=== PATIENT | female | born 1985 | race Caucasian/White ===

== ENCOUNTER 2025-08-24 11:27 | Emergency (ER) | payer SELFPAY ==
[2025-08-24 11:30] VITALS: BP 176/108; PULSE 74; RESP 18; TEMP 36.6; O2SAT 100; BMI 25.4
[2025-08-24 11:38] VITALS: BP 176/108; PULSE 88; O2SAT 100
--- NOTE | 2025-08-24 12:25 | HMH.EDGENADL ---
Discharge Plan Referrals Follow up/Referrals: Provider,Referral, [Primary Care Provider, Medical] - See instructions Clinical Impressions Clinical Impression: Esophageal cancer, Acute upper GI bleed Stand Alone Forms Stand Alone Forms: Transfer Record - ED Instructions Patient Instructions: DI for Acute Abdominal Pain Print Language Print Language: Swedish Discharge ED Provider: Tari Shelton General Adult HPI General Chief complaint: Abdominal Pain Stated complaint: Abd Pain, vomiting blood Time Seen by Provider: 08/24/25 12:03 Mode of Arrival: Ambulatory Source of Information: Patient Description of Symptoms (Recalled from ER Triage Doc. by RN): PATIENT PRESENTS TO ED FOR MIDLINE EPIGASTRIC PAIN WITH 3 EPISODES OF VOMITING BLOOD AND CLOTS. VOMITING BEGAN YESTERDAY, ABDOMINAL PAIN BEGAN THIS MORNING. PT IS CURRENTLY BEING TREATED FOR HER SECOND DX OF ESOPHAGEAL CANCER WITH CHEMO AND RADIATION. PT IS IN TOWN FROM THE [facility] AND RECEIVES ALL OF HER CARE BACK HOME. REPORTS SHE RECEIVED 2 UNITS OF PLASMA AND 4 UNITS OF BLOOD BEFORE LEAVING FOR HER TRIP HERE. History of Present Illness HPI narrative: Patient is a 40-year-old female who presents today with symptoms concerning for an upper GI bleed. She has a history of these in the past. Has known esophageal cancer recently had to have a transfusion just a few days ago in [facility]. She was diagnosed with esophageal cancer and 2011. 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 She received chemotherapy at that time ultimately getting a resection and was cancer free in 2013. She had been getting surveillance testing done since that time and 1 year ago was noted to have recurrence of disease. She states that it is a tumor in her distal esophagus with local extension into the stomach. She has a severe anaphylactic allergy to contrast. She flew in on Monday for a friend's wedding was not told that she could not travel. Her hemoglobin was less than 7 the same day she also had an infusion of chemo that they was told to just take her medications and that she was okay. However she has developed large amounts of hematemesis she states over the last several days as well as black tarry stools. She took her Protonix octreotide Dilaudid Zofran and GI cocktail without any improvement at home. She was told to come to her nearest emergency department. All of her cancer care has been in the [facility] [place]. She is never been taken care of in the [place]. She complains of severe epigastric abdominal discomfort. Related Data Allergies Allergy/AdvReac Type Severity Reaction Status Date / Time fentanyl Allergy Anaphylaxis Verified 08/24/25 12:39 iodine Allergy Anaphylaxis Verified 08/24/25 12:38 [facility] Disclaimer: The information contained in this section may have been updated after the patient was seen, as this information can be updated by other users. Social History Smoking Status: Never smoker alcohol intake: never current occupational status: other Travel in the last 8 weeks?: None ROS Obtained: Yes All systems reviewed & no additional complaints except as documented Physical Exam General General appearance: in distress (Appears in pain) Respiratory Respiratory exam: Present normal lung sounds bilaterally Cardiovascular Cardiovascular exam: Present regular rate Abdominal Exam Abdominal exam: Present tenderness (Epigastric tenderness palpation no rebound or guarding) Neurological Exam Neurological exam: Present alert and oriented X3 Medical Decision Making Medical Records Screening: Per USPSTF and CDC recommendations, given the prevalence of disease in our region, it is our hospital?s policy to screen for HIV and viral Hepatitis for all patients aged 18 and over and those with ongoing risk factors. Herbert Inquiry Pt receiving controlled substance: No Vital Signs: 08/24/25 11:30 08/24/25 11:30 08/24/25 11:38 Temperature 97.9 F 97.9 F Temperature Source Oral Pulse Rate 74 88 Pulse Rate [Right] 74 Respiratory Rate 18 18 Blood Pressure 176/108 H 176/108 H Blood Pressure [Right Arm] 176/108 H Blood Pressure Mean Blood Pressure Mean [Right Arm] 130 02 Sat by Pulse Oximetry 100 100 100 Oxygen Delivery Method Room Air 08/24/25 12:40 Temperature Temperature Source Pulse Rate Pulse Rate [Right] Respiratory Rate Blood Pressure 182/107 H Blood Pressure [Right Arm] Blood Pressure Mean 135 Blood Pressure Mean [Right Arm] 02 Sat by Pulse Oximetry 95 Oxygen Delivery Method Room Air Lab Data Lab results reviewed: Yes I reviewed the patient's lab results. Lab Results 08/24/25 12:30: WBC 9.5, RBC 4.60, Hgb 10.5 L, Hct 33.8 L, MCV 73.5 L, MCH 22.8 L, MCHC 31.1 L, RDW 20.6 H, Plt Count 425 H, MPV 9.6, Neut % (Auto) 81.2 H, Lymph % (Auto) 11.3, Bracken % (Auto) 6.1, Eos % (Auto) 0.9, Baso % (Auto) 0.2, Neut # (Auto) 7.7, Lymph # (Auto) 1.1, Bracken # (Auto) 0.6, Eos # (Auto) 0.1, Baso # (Auto) 0.0 08/24/25 12:30 Orders (Tests/Meds): ED MEDICATIONS Generic Name Dose Route Start Last Admin Trade Name Freq PRN Reason Stop Dose Admin Lactated Ringer's 1,000 mls @ 999 mls/hr 08/24/25 12:15 08/24/25 12:42 Lactated Ringer's 1000 Ml Bag IV 08/24/25 13:15 999 mls/hr .Q1H1M SHERLY Administration Pantoprazole Sodium 80 mg/ 100 mls @ 10 mls/hr 08/24/25 12:30 08/24/25 12:42 Sodium Chloride IV 08/27/25 12:29 10 mls/hr .Q10H SHERLY Administration Octreotide Acetate 500 mcg/ 255 mls @ 25.5 mls/hr 08/24/25 12:45 Sodium Chloride IV 09/23/25 12:44 .Q10H SHERLY 50 MCG/HR Discontinued Medications Generic Name Dose Route Start Last Admin Trade Name Freq PRN Reason Stop Dose Admin Hydromorphone HCl 0.5 mg 08/24/25 12:14 08/24/25 12:42 Hydromorphone 2mg/Ml Syringe IV 08/24/25 12:15 0.5 mg ONCE ONE Administration Octreotide Acetate 50 mcg/ 50.5 mls @ 101 mls/hr 08/24/25 12:39 Sodium Chloride IV 08/24/25 12:40 ONCE ONE Ondansetron HCl 4 mg 08/24/25 12:14 08/24/25 12:42 Ondansetron 4mg/2ml Vial IV 08/24/25 12:15 4 mg ONCE ONE Administration ORDERS Category Date Time Status Type and Screen Stat BBK 08/24/25 12:[address] abdomen pelvis wo con Stat Cat Scan 08/24/25 12:[address] chest wo con Stat Cat Scan 08/24/25 12:14 Ordered CBC w/Auto Diff [Complete Blood Count Auto Diff] Stat Lab 08/24/25 12:30 Completed CMP [Comprehensive Metabolic Panel] Stat Lab 08/24/25 12:30 Received HCG Qualitative, Serum Stat Lab 08/24/25 12:30 Received Lactic Acid Stat Lab 08/24/25 12:30 Received PT/PTT Stat Lab 08/24/25 12:30 Received Trop I [Troponin I] Stat Lab 08/24/25 12:30 Received Troponin I Q3H Lab 08/24/25 15:15 Ordered Troponin I Q3H Lab 08/24/25 18:15 Ordered Medical Decision Narrative: 40-year-old with above history and physical concerning for an upper gastrointestinal bleed in the setting of esophageal cancer. Ultrasound-guided IV was placed patient is hemodynamically stable will check her hemoglobin and get an H&H given infusion of Protonix she is already had oral Protonix prior to arrival. She does not have any known history of cirrhosis will hold off on octreotide or any further treatment from that standpoint. She will likely need to be transferred to a [facility] [place] where there are thoracic surgeons surgical oncologist heme-onc etc. She is okay with that. Given the fact that she has severe anaphylactic allergy to contrast will get noncontrasted CT scans to see if we have any obvious evidence of large tumors or metastatic disease. Reassessment 12:50 PM patient began throwing a very large amounts of bright red blood several 100 cc right in front of us. Given the large amount of bleeding this appears to be potentially variceal even though she has no history of this I did confirm this with her but will add octreotide on. Again no history of cirrhosis. She is still normotensive and her hemoglobin did come back at 10 however is hide noted above she is exsanguinating at the moment. We called our helicopter but nobody is able to fly given the weather at the moment. I spoke with Dr. Lin who is our recoater and given her cancer history and her relative stability we will try to get her to the cancer center where there is more surgeons IR gastroenterology etc. I spoke with Dr. Childress in the transfer center who accepted the patient. We are holding off on transfusions at the moment. I discussed with the patient at the moment she is not actively vomiting and is protecting her airway and I will not intubate her at the moment. She is tenuous she understands that this is a life-threatening condition and is okay with transfer. Other labs pending. Deferred CT scans. Procedures Miscellaneous Procedure Procedure Performed: Ultrasound-guided IV Indication difficult IV access Patient was placed in the supine position was prepped and draped in sterile fashion. 20-gauge 48 mm Angiocath was used with axial and long axis planes on the ultrasound under direct visual guidance. The tip of the needle was observed being inserted directly into the vein itself and catheter was advanced under direct guidance. No significant complications. Critical Care Critical Care Time Critical Care Time: Yes Attestation: On 08/24/25, the high probability of a clinically significant, sudden or life threatening deterioration of the following system(s) required my full and direct attention, intervention and personal management. The time I documented below is in addition to time spent performing reported procedures but includes the following listed in this critical care notation. Total Time Total Critical Care Time: 65
[2025-08-24 12:40] VITALS: BP 182/107; O2SAT 95
[2025-08-24 12:41] LABS: Hematocrit 33.8 % (37.0-47.0); Hemoglobin 10.5 g/dL (12.2-16.2); Immature Granulocytes % 0.3 %; Mean Corpuscular HGB Conc 31.1 g/dL (31.8-35.4); Mean Corpuscular Hemoglobin 22.8 pg (27.0-31.2); Mean Corpuscular Volume 73.5 fl (81-99); Nucleated Red Blood Cells % 0 %; Platelet Count 425 K/mm3 (142-424); Red Blood Count 4.60 M/mm3 (4.20-5.40); Red Cell Distribution Width-SD 53.2 fL; White Blood Count 9.5 K/mm3 (4.8-10.8)
[2025-08-24] MEDS: PANTOPRAZOLE SODIUM 80 MG in 0.9 % SODIUM CHLORIDE 100 ML 10 MG IV (12:42)
[2025-08-24] MEDS: HYDROMORPHONE 2MG/ML SYRINGE 0.5 MG IV (12:42)
[2025-08-24] MEDS: LACTATED RINGERS 1000ML 1,000 ML 999 ML IV (12:42)
[2025-08-24] MEDS: ONDANSETRON 4MG/2ML VIAL 4 MG IV (12:42)
--- NOTE | 2025-08-24 12:43 | PC.NURSE ---
called for weather check with [employer] for emergent transfer, declined due to weather until 1600 today
[2025-08-24 12:51] LABS: Chloride 103 mmol/L (98-107)
[2025-08-24 12:52] LABS: Albumin Level 4.7 g/dl (3.5-5.0); Potassium 3.8 mmoL/L (3.5-5.1); Sodium 137 mmol/L (136-145)
[2025-08-24 12:54] LABS: Alanine Aminotransferase 17 U/L (12-78); Anion Gap 11.8 mEq/L (5-15); Aspartate Amino Transferase 33 U/L (14-36); Blood Urea Nitrogen 6 mg/dl (7-17); Carbon Dioxide 26 mmol/L (22.0-30.0); Creatinine Clearance Estimated 118 mL/min (50-200); Creatinine,Serum 0.60 mg/dl (0.52-1.04); Estimated Glomerular Filt Rate 112 ml/min (>60); GFR (African American) 135 ML/MIN (>60)
[2025-08-24 12:55] LABS: Activated Partial Thrombo Time 25.0 seconds (22.8-30.6); Albumin/Globulin Ratio 1.1 (1.1-1.8); Alkaline Phosphatase 117 U/L (38-126); Bilirubin,Total 0.4 mg/dl (0.2-1.3); Calcium 9.3 mg/dl (8.4-10.2); Globulin 4.3 g/dL (1.3-3.2); Glucose 98 mg/dl (74-100); INR 1.00 (0.9-1.1); Prothrombin Time 11.1 seconds (10.1-12.5); Total Protein,Serum 9.0 g/dl (6.3-8.2)
[2025-08-24] MEDS: OCTREOTIDE ACETATE 50 MCG in 0.9 % SODIUM CHLORIDE 50 ML 101 MCG IV (12:55)
[2025-08-24 13:00] LABS: HCG Qualitative, Serum Negative (Negative)
[2025-08-24] MEDS: diazePAM 10MG/2ML SYRINGE 2 MG IV (13:03)
[2025-08-24 13:06] LABS: Troponin I < 0.01 ng/ml (0.00-0.034)
[2025-08-24 13:08] VITALS: BP 182/107; PULSE 88; RESP 20; TEMP 36.6; O2SAT 99
== END 2025-08-24 13:08 | disposition short-term general hospital (02) ==
PROVIDERS: Emergency Provider Student in an Organized Health Care Education/Training Program
DX: K92.2 Gastrointestinal hemorrhage, unspecified (principal); R10.13 Epigastric pain; C15.9 Malignant neoplasm of esophagus, unspecified
CPT/HCPCS: 76942; 80053; 83605; 84484; 84703; 85025; 85610; 85730; 86850; 96365; 96375; 96376; 99285; 99291; J1171; J2354; J2405; J2470; J3360; J7050; J7120